=== PATIENT | female | born 1995 | race Caucasian/White ===

== ENCOUNTER 2025-03-01 08:03 | Outpatient (CLI) | payer BC, SELFPAY ==
--- NOTE | 2025-03-01 08:15 | CRLHL7_ITS ---
For Patients: As a result of the Century Cures Act, medical imaging exams and procedure reports are released immediately into your electronic medical record. You may view this report before your referring provider. If you have questions, please contact your health care provider. OB ULTRASOUND INDICATION: Dating and viability. TECHNIQUE: Real time grayscale imaging of the fetus was performed. Transvaginal. Transvaginal imaging performed to better demonstrate the endometrium and ovaries. LMP: Unknown. BLAIR by IVF: 09/29/2025. GA: 9 w, 5 d. Previous US: No. CRL: 3.0 cm. 9 w 6 d. BLAIR: 09/28/2025. FHR: 165 BPM. Gestational sac: 4.0 cm. Appears within normal limits. Yolk sac: 4.9 mm. Appears within normal limits. Right ovary: Within normal limits. 2.6 x 1.9 x 1.8 cm. Left ovary: Within normal limits. 2.9 x 1.6 x 2.7 cm. IMPRESSION: Single living intrauterine measuring 9 weeks 6 days with sonographic due date 09/28/2025. Emerson Frye M.D. Diagnostic Radiologist [email or web address]/Dictated by: Emerson Frye MD @ 03/01/2025 10:00:00 AM (Electronically Signed)
== END 2025-03-01 08:04 | disposition home or self-care (01) ==
LOC: US 08:05
PROVIDERS: Visit Provider Registered Nurse
DX: Z34.91 Encounter for supervision of normal pregnancy, unspecified, first trimester (principal); Z3A.09 9 weeks gestation of pregnancy
CPT/HCPCS: 76817; 83021; 84443; 87086

== ENCOUNTER 2025-03-01 09:14 | Outpatient (CLI) | payer BC, SELFPAY | END 2025-03-01 09:15 | disposition home or self-care (01) | PROVIDERS: Visit Provider Registered Nurse | DX: Z34.91 Encounter for supervision of normal pregnancy, unspecified, first trimester (principal); Z3A.09 9 weeks gestation of pregnancy | CPT/HCPCS: 83020; 83021; 84443; 85660; 86762; 86787; 87086 ==

== ENCOUNTER 2025-03-28 13:47 | Outpatient (CLI) | payer BC, SELFPAY ==
--- NOTE | 2025-03-28 14:00 | CRLHL7_ITS ---
For Patients: As a result of the Century Cures Act, medical imaging exams and procedure reports are released immediately into your electronic medical record. You may view this report before your referring provider. If you have questions, please contact your health care provider. INDICATION: Enlarged Thyroid COMPARISON: none TECHNIQUE: Johnson scale and color Doppler images were acquired of the thyroid gland. FINDINGS: Hypoechoic solid nodule right thyroid lobe measures 10 x 5 x 5 millimeters, TR 4. Isthmus measures 2 millimeters. The right lobe measures 5.3 x 1.6 x 1.7 cm and the left lobe measures 4.3 x 1.2 x 1.6 cm in size. The color Doppler images demonstrate normal vascularity. There is no evidence of cervical lymphadenopathy or parathyroid mass. IMPRESSION: 1 cm TR 4 nodule right thyroid lobe. One year follow-up recommended. Dictated by Emerson Fyre MD @ 03/28/2025 3:47:33 PM (Electronically Signed)
== END 2025-03-28 13:48 | disposition home or self-care (01) ==
LOC: US 13:50
PROVIDERS: Visit Provider Registered Nurse
DX: E04.9 Nontoxic goiter, unspecified (principal)
CPT/HCPCS: 76536

== ENCOUNTER 2025-05-15 13:05 | Outpatient (CLI) | payer BC, SELFPAY | END 2025-05-15 13:06 | disposition home or self-care (01) | LOC: US 13:05 | PROVIDERS: Visit Provider Obstetrics & Gynecology | DX: O09.812 Supervision of pregnancy resulting from assisted reproductive technology, second trimester (principal); Z3A.20 20 weeks gestation of pregnancy | CPT/HCPCS: 76811 ==

== ENCOUNTER 2025-07-12 09:52 | Outpatient (CLI) | payer BC, SELFPAY | END 2025-07-12 09:53 | disposition home or self-care (01) | LOC: NFLDREF 07-18 02:13 | PROVIDERS: Visit Provider Obstetrics & Gynecology | DX: Z34.93 Encounter for supervision of normal pregnancy, unspecified, third trimester (principal) | CPT/HCPCS: 86592 ==

== ENCOUNTER 2025-07-31 13:57 | Outpatient (CLI) | payer BC, SELFPAY | END 2025-07-31 13:58 | disposition home or self-care (01) | LOC: US 13:57 | PROVIDERS: Visit Provider Obstetrics & Gynecology | DX: O09.293 Supervision of pregnancy with other poor reproductive or obstetric history, third trimester (principal); Z3A.31 31 weeks gestation of pregnancy | CPT/HCPCS: 76816 ==